=== PATIENT | male | born 1945 | race Two or more races ===

== ENCOUNTER 2021-07-13 13:04 | Emergency (ER) | payer MEDICARE, OTHER ==
[~2021-07-13] VITALS: Ht 175.3 cm; Wt 74.8 kg
[2021-07-13 14:12] LABS: Basophils # (auto) 0.1 10 ^3/uL (0-0.2); Basophils % (auto) 0.8 % (0.0-2.0); Eosinophils # (auto) 0 10 ^3/uL (0-0.8); Eosinophils % (auto) 0.2 % (0.0-7.0); Hematocrit 36.5 % (41.0-53.0); Hemoglobin 12.8 g/dL (13.5-17.5); Lymphocytes # (auto) 1.2 10 ^3/uL (0.4-5.4); Lymphocytes % (auto) 16.3 % (10.0-50.0); Mean Corpuscular Hemoglobin 33.2 pg (28.0-32.0); Mean Corpuscular Hgb Conc. 35.1 g/dL (32.0-36.0); Mean Corpuscular Volume 94.6 fL (80.0-100.0); Monocytes # (auto) 0.6 10 ^3/uL (0-1.3); Monocytes % (auto) 8.8 % (0.0-12.0); Neutrophils # (auto) 5.3 10 ^3/uL (1.6-8.6); Neutrophils % (auto) 73.9 % (37.0-80.0); Nucleated Red Blood Cells % 0.2 %; Red Blood Cells 3.86 10^6/uL (4.5-5.90); Red Cell Distribution Width 15.8 % (11.8-14.3); White Blood Cell 7.2 10^3/uL (4.4-10.8)
[2021-07-13 14:34] LABS: Albumin 4.1 g/dL (3.4-5.0); Calcium 8.6 mg/dL (8.5-10.1); Magnesium 2.3 mg/dL (1.6-2.6); Potassium 4.1 mmol/L (3.5-5.1)
[2021-07-13 14:37] LABS: BUN/Creatinine Ratio 6.9
[2021-07-13 14:52] LABS: Bilirubin, Total 1.6 mg/dL (0.2-1.0); Total Protein 7.5 g/dL (6.4-8.2)
[2021-07-13 15:36] LABS: INR 1.03 (0.9-1.15); Partial Thromboplastin Time 29.3 sec (23.6-33.0)
[2021-07-13 16:19] LABS: Urine Bacteria FEW /hpf (None Seen); Urine Blood 1+ /uL (Negative); Urine Specific Gravity 1.011 (1.001-1.035); Urine WBC 13 /hpf (0 - 3)
[2021-07-13 17:18] VITALS: BP 185/87
== END 2021-07-13 18:06 | disposition home or self-care (01) ==
LOC: ER 13:04
DX: S06.0X9A Concussion with loss of consciousness of unspecified duration, initial encounter (principal); R94.31 Abnormal electrocardiogram [ECG] [EKG]; W18.09XA Striking against other object with subsequent fall, initial encounter; Y93.89 Activity, other specified; Y92.89 Other specified places as the place of occurrence of the external cause; Y99.8 Other external cause status
CPT/HCPCS: 36415; 70450; 70486; 71046; 72125; 72170; 80053; 81001; 83735; 84484; 85025; 85610; 85730; 93005

== ENCOUNTER 2021-08-03 10:53 | Emergency (ER) | payer MEDICARE ==
[~2021-08-03] VITALS: Ht 175.3 cm; Wt 75.3 kg
[2021-08-03 10:57] VITALS: BP 107/87
== END 2021-08-03 11:58 | disposition home or self-care (01) ==
LOC: ER 10:53
DX: S00.03XD Contusion of scalp, subsequent encounter (principal); Z88.0 Allergy status to penicillin; W19.XXXD Unspecified fall, subsequent encounter

== ENCOUNTER 2021-12-29 14:11 | Inpatient (IN) | payer MEDICARE ==
[~2021-12-29] VITALS: Ht 165.1 cm; Wt 70.2 kg
[2021-12-29 15:23] LABS: Basophils # (auto) 0 10 ^3/uL (0-0.2); Basophils % (auto) 0.5 % (0.0-2.0); Eosinophils # (auto) 0.1 10 ^3/uL (0-0.8); Eosinophils % (auto) 1.5 % (0.0-7.0); Hemoglobin 11.7 g/dL (13.5-17.5); Lymphocytes # (auto) 1.1 10 ^3/uL (0.4-5.4); Lymphocytes % (auto) 15.1 % (10.0-50.0); Mean Corpuscular Hemoglobin 28.9 pg (28.0-32.0); Mean Corpuscular Hgb Conc. 33.4 g/dL (32.0-36.0); Mean Corpuscular Volume 86.6 fL (80.0-100.0); Monocytes # (auto) 0.6 10 ^3/uL (0-1.3); Monocytes % (auto) 8.3 % (0.0-12.0); Neutrophils # (auto) 5.3 10 ^3/uL (1.6-8.6); Neutrophils % (auto) 74.6 % (37.0-80.0); Nucleated Red Blood Cells % 0.1 %; Red Blood Cells 4.04 10^6/uL (4.5-5.90); Red Cell Distribution Width 15.9 % (11.8-14.3); White Blood Cell 7.1 10^3/uL (4.4-10.8)
[2021-12-29 15:40] LABS: Albumin 3.9 g/dL (3.4-5.0); Calcium 8.8 mg/dL (8.5-10.1); Potassium 4.6 mmol/L (3.5-5.1)
[2021-12-29 15:43] LABS: BUN/Creatinine Ratio 5.3; Bilirubin, Total 0.8 mg/dL (0.2-1.0)
[2021-12-29] MEDS ORDERED: cefTRIAXone 1GM/50ML D5W 50 ML IV ONE (16:15)
[2021-12-29] MEDS ORDERED: SODIUM CHLORIDE 0.9% 1,000 ML IV ONE (16:15)
[2021-12-29] MEDS ORDERED: SODIUM CHLORIDE 0.9% 500 ML IV ONE (16:15)
[2021-12-30 06:31] LABS: Basophils # (auto) 0 10 ^3/uL (0-0.2); Basophils % (auto) 0.6 % (0.0-2.0); Eosinophils # (auto) 0.2 10 ^3/uL (0-0.8); Eosinophils % (auto) 4.2 % (0.0-7.0); Hemoglobin 11.7 g/dL (13.5-17.5); Lymphocytes # (auto) 1.2 10 ^3/uL (0.4-5.4); Lymphocytes % (auto) 21.4 % (10.0-50.0); Mean Corpuscular Hgb Conc. 33.4 g/dL (32.0-36.0); Mean Corpuscular Volume 86.7 fL (80.0-100.0); Monocytes # (auto) 0.7 10 ^3/uL (0-1.3); Monocytes % (auto) 11.8 % (0.0-12.0); Neutrophils # (auto) 3.6 10 ^3/uL (1.6-8.6); Red Blood Cells 4.04 10^6/uL (4.5-5.90); Red Cell Distribution Width 15.9 % (11.8-14.3); White Blood Cell 5.8 10^3/uL (4.4-10.8)
[2021-12-30 06:47] LABS: Potassium 4.8 mmol/L (3.5-5.1)
[2021-12-30] MEDS: ENOXAPARIN SOD 40 MG/0.4 ML SYRINGE SC SCH (06:47)
[2021-12-30] MEDS: hydrALAZINE HCL 20 MG/ML VL IV PRN (06:47)
[2021-12-30] MEDS: SODIUM CHLORIDE 0.9% 1,000 ML IV SCH ×2 (06:47→12:54)
[2021-12-30] MEDS: PIPERACILLIN-TAZOB 3.375GM 100 ML IV SCH ×3 (06:48→06:53)
[2021-12-30 06:51] LABS: BUN/Creatinine Ratio 6.1
[2021-12-30 07:02] LABS: Bilirubin, Total 0.8 mg/dL (0.2-1.0); Total Protein 7.1 g/dL (6.4-8.2)
[2021-12-30 08:56] LABS: Urine Bacteria NONE SEEN /hpf (None Seen); Urine Blood Negative /uL (Negative); Urine Specific Gravity 1.004 (1.001-1.035); Urine WBC 5 /hpf (0 - 3)
[2021-12-30] MEDS ORDERED: levoFLOXacin 500MG 100 ML IV ONE (11:45)
[2021-12-30] MEDS ORDERED: THIAMINE 100mg/ml INJ (200mg/2ml VIAL) IV ONE (12:30)
[2021-12-30] MEDS ORDERED: chlordiazePOXIDE HCL 25 MG CAP PO PRN (12:30)
[2021-12-30] MEDS: CLINDAMYCIN 600MG IV 50 ML IV SCH ×2 (14:43→23:20)
[2021-12-30] MEDS: chlordiazePOXIDE HCL 5 MG CAP PO SCH ×2 (18:17→23:21)
[2021-12-30 21:45] VITALS: BP 152/67
[2021-12-30] MEDS ORDERED: AMLO10CA33 PO (21:55)
[2021-12-30 22:00] VITALS: BP 152/67
[2021-12-31] MEDS: hydrALAZINE HCL 20 MG/ML VL IV PRN ×2 (04:26→21:52)
[2021-12-31] MEDS: SODIUM CHLORIDE 0.9% 1,000 ML IV SCH ×2 (04:50→21:51)
[2021-12-31] MEDS: CLINDAMYCIN 600MG IV 50 ML IV SCH ×3 (05:15→21:51)
[2021-12-31] MEDS: chlordiazePOXIDE HCL 5 MG CAP PO SCH ×3 (05:16→19:21)
[2021-12-31 05:25] VITALS: BP 164/65
[2021-12-31 06:06] LABS: Potassium 3.9 mmol/L (3.5-5.1)
[2021-12-31 06:12] LABS: Albumin 3.5 g/dL (3.4-5.0); BUN/Creatinine Ratio 9.5; Calcium 8.5 mg/dL (8.5-10.1)
[2021-12-31 06:14] LABS: Bilirubin, Total 0.9 mg/dL (0.2-1.0); Total Protein 6.3 g/dL (6.4-8.2)
[2021-12-31 09:00] VITALS: BP 128/74
[2021-12-31] MEDS: THIAMINE 100mg/ml INJ (200mg/2ml VIAL) IV SCH (09:55)
[2021-12-31] MEDS: ENOXAPARIN SOD 40 MG/0.4 ML SYRINGE SC SCH (09:55)
[2021-12-31] MEDS: levoFLOXacin 500MG 100 ML IV SCH (09:58)
[2021-12-31 13:00] VITALS: BP 124/79
[2021-12-31 16:58] VITALS: BP 159/70
[2021-12-31 20:10] VITALS: BP 168/66
[2021-12-31 22:00] VITALS: BP 168/66
[2022-01-01 00:15] VITALS: BP 136/53
[2022-01-01 05:00] VITALS: BP 143/63
[2022-01-01] MEDS: CLINDAMYCIN 600MG IV 50 ML IV SCH ×3 (05:22→21:15)
[2022-01-01] MEDS: chlordiazePOXIDE HCL 5 MG CAP PO SCH ×5 (05:22→23:18)
[2022-01-01 09:00] VITALS: BP 146/61
[2022-01-01] MEDS: THIAMINE 100mg/ml INJ (200mg/2ml VIAL) IV SCH (10:44)
[2022-01-01] MEDS: ENOXAPARIN SOD 40 MG/0.4 ML SYRINGE SC SCH (10:45)
[2022-01-01] MEDS: levoFLOXacin 500MG 100 ML IV SCH (10:45)
[2022-01-01] MEDS: GABAPENTIN 100 MG CAP PO SCH (10:45)
[2022-01-01 13:00] VITALS: BP 167/77
[2022-01-01] MEDS: SODIUM CHLORIDE 0.9% 1,000 ML IV SCH (13:22)
[2022-01-01 17:00] VITALS: BP 171/79
[2022-01-01] MEDS: hydrALAZINE HCL 20 MG/ML VL IV PRN (17:34)
[2022-01-01 22:00] VITALS: BP 156/66
[2022-01-02] VITALS (8 sets, daily range): BP systolic 141–163; BP diastolic 58–88
[2022-01-02] MEDS: hydrALAZINE HCL 20 MG/ML VL IV PRN ×2 (03:51→12:54)
[2022-01-02] MEDS: ACETAMINOPHEN 500 MG TAB PO PRN ×2 (03:52→21:09)
[2022-01-02] MEDS: chlordiazePOXIDE HCL 5 MG CAP PO SCH ×4 (05:19→23:48)
[2022-01-02] MEDS: CLINDAMYCIN 600MG IV 50 ML IV SCH ×3 (05:19→21:56)
[2022-01-02] MEDS: SODIUM CHLORIDE 0.9% 1,000 ML IV SCH ×2 (06:47→23:48)
[2022-01-02] MEDS: THIAMINE 100mg/ml INJ (200mg/2ml VIAL) IV SCH (09:32)
[2022-01-02] MEDS: GABAPENTIN 100 MG CAP PO SCH (09:32)
[2022-01-02] MEDS: ENOXAPARIN SOD 40 MG/0.4 ML SYRINGE SC SCH (09:32)
[2022-01-02] MEDS: levoFLOXacin 500MG 100 ML IV SCH (09:32)
[2022-01-02 10:12] LABS: Basophils # (auto) 0 10 ^3/uL (0-0.2); Basophils % (auto) 0.4 % (0.0-2.0); Eosinophils # (auto) 0.1 10 ^3/uL (0-0.8); Eosinophils % (auto) 1.4 % (0.0-7.0); Hematocrit 31.9 % (41.0-53.0); Hemoglobin 10.6 g/dL (13.5-17.5); Lymphocytes # (auto) 0.7 10 ^3/uL (0.4-5.4); Mean Corpuscular Hemoglobin 28.6 pg (28.0-32.0); Mean Corpuscular Hgb Conc. 33.3 g/dL (32.0-36.0); Mean Corpuscular Volume 86.1 fL (80.0-100.0); Monocytes # (auto) 0.9 10 ^3/uL (0-1.3); Monocytes % (auto) 12.7 % (0.0-12.0); Neutrophils # (auto) 5.4 10 ^3/uL (1.6-8.6); Neutrophils % (auto) 75.5 % (37.0-80.0); Red Cell Distribution Width 15.4 % (11.8-14.3); White Blood Cell 7.1 10^3/uL (4.4-10.8)
[2022-01-02 10:28] LABS: Calcium 8.3 mg/dL (8.5-10.1); Potassium 3.2 mmol/L (3.5-5.1)
[2022-01-02 10:30] LABS: BUN/Creatinine Ratio 6.5
[2022-01-02 11:56] LABS: INR 1.13 (0.9-1.15); Partial Thromboplastin Time 35.2 sec (24.6-33.4)
[2022-01-03] VITALS (10 sets, daily range): BP systolic 129–169; BP diastolic 71–87
[2022-01-03] MEDS: hydrALAZINE HCL 20 MG/ML VL IV PRN (05:37)
[2022-01-03] MEDS: CLINDAMYCIN 600MG IV 50 ML IV SCH ×3 (06:00→22:06)
[2022-01-03] MEDS: chlordiazePOXIDE HCL 5 MG CAP PO SCH ×3 (06:00→17:20)
[2022-01-03] MEDS: levoFLOXacin 500MG 100 ML IV SCH (08:44)
[2022-01-03] MEDS: THIAMINE 100mg/ml INJ (200mg/2ml VIAL) IV SCH (08:44)
[2022-01-03] MEDS: GABAPENTIN 100 MG CAP PO SCH (08:44)
[2022-01-03] MEDS: ENOXAPARIN SOD 40 MG/0.4 ML SYRINGE SC SCH (08:44)
[2022-01-03] MEDS ORDERED: POTASSIUM EFFERVESENT TAB 25 MEQ PO ONE (09:30)
[2022-01-03] MEDS ORDERED: IODIXANOL 320MG/ML 100ML BTL IV ONE ×3 (11:32→13:51)
[2022-01-03] MEDS ORDERED: LIDOCAINE 2%HCL (LOCAL ANESTH.) INJ 20ML MDV ONE (11:32)
[2022-01-03] MEDS ORDERED: MIDAZOLAM HCL 2MG/2ML 2ml VIAL (1mg/ml) ONE (12:04)
[2022-01-03] MEDS ORDERED: fentaNYL CITRATE 100 MCG/2 ML VL ONE (12:04)
[2022-01-03] MEDS ORDERED: ANGIOMAX 250 MG VIAL IV ONE ×2 (12:04→13:45)
[2022-01-03] MEDS ORDERED: SODIUM CHL 0.9% 0 ML ONE (12:04)
[2022-01-03] MEDS ORDERED: SODIUM CHL 0.9% 50 ML ONE (13:45)
[2022-01-03] MEDS ORDERED: CLOPIDOGREL 300 MG TAB ONE (13:54)
[2022-01-03] MEDS ORDERED: ASPirin 325 MG TAB ONE (13:55)
[2022-01-03] MEDS ORDERED: EPTIFIBATIDE DRIP(0.75MG/ML) 100 ML IV SCH ×2 (14:15→14:30)
[2022-01-03] MEDS ORDERED: EPTIFIBATIDE INJ (2MG/ML) 10ML VIAL IV ONE (14:20)
[2022-01-03] MEDS: SODIUM CHLORIDE 0.9% 1,000 ML IV SCH (16:10)
[2022-01-03] MEDS: ACETAMINOPHEN 500 MG TAB PO PRN (22:08)
[2022-01-04] MEDS: chlordiazePOXIDE HCL 5 MG CAP PO SCH ×3 (00:07→11:48)
[2022-01-04 04:56] VITALS: BP 136/74
[2022-01-04] MEDS: CLINDAMYCIN 600MG IV 50 ML IV SCH ×2 (06:15→14:00)
[2022-01-04 08:17] VITALS: BP 149/75
[2022-01-04] MEDS: GABAPENTIN 100 MG CAP PO SCH (08:54)
[2022-01-04] MEDS: ENOXAPARIN SOD 40 MG/0.4 ML SYRINGE SC SCH (08:54)
[2022-01-04] MEDS: levoFLOXacin 500MG 100 ML IV SCH (08:54)
[2022-01-04] MEDS: THIAMINE 100mg/ml INJ (200mg/2ml VIAL) IV SCH (08:54)
[2022-01-04] MEDS: SODIUM CHLORIDE 0.9% 1,000 ML IV SCH (08:55)
[2022-01-04] MEDS ORDERED: CLOPIDOGREL BISULFATE 75 MG TAB PO SCH (10:00)
[2022-01-04] MEDS ORDERED: ASPirin 81 mg TAB PO SCH (10:00)
[2022-01-04] MEDS ORDERED: ASPI-378 PO (12:09)
[2022-01-04] MEDS ORDERED: CLOP75TA28 PO (12:09)
[2022-01-04] MEDS ORDERED: LEVO500T31 PO (12:09)
[2022-01-04] MEDS ORDERED: GABA100C9 PO (12:09)
[2022-01-04 12:23] VITALS: BP 149/75
[2022-01-04 13:20] VITALS: BP 151/77
[2022-01-04] MEDS ORDERED: ATORVASTATIN 20 MG TAB PO SCH (22:00)
== END 2022-01-04 16:52 | disposition home or self-care (01) | DRG 253 ==
LOC: ER 14:11 → OVERFLOW 19:16 → EAST 12-30 21:01
PROVIDERS: ADMIT Internal Medicine; ATTEND Nurse Practitioner Acute Care
PROC: B41G1ZZ Fluoroscopy of Left Lower Extremity Arteries using Low Osmolar Contrast (ICD-10-PCS; principal; 2022-01-03)
PROC: 047K3Z1 Dilation of Right Femoral Artery using Drug-Coated Balloon, Percutaneous Approach (ICD-10-PCS; 2022-01-03)
PROC: 04FK3ZZ Fragmentation of Right Femoral Artery, Percutaneous Approach (ICD-10-PCS; 2022-01-03)
PROC: B41F1ZZ Fluoroscopy of Right Lower Extremity Arteries using Low Osmolar Contrast (ICD-10-PCS; 2022-01-03)
DX: E11.51 Type 2 diabetes mellitus with diabetic peripheral angiopathy without gangrene (principal); E87.1 Hypo-osmolality and hyponatremia; L03.116 Cellulitis of left lower limb; E11.65 Type 2 diabetes mellitus with hyperglycemia; I10 Essential (primary) hypertension; F17.210 Nicotine dependence, cigarettes, uncomplicated; E11.42 Type 2 diabetes mellitus with diabetic polyneuropathy; E78.5 Hyperlipidemia, unspecified; E66.9 Obesity, unspecified; Z20.822 Contact with and (suspected) exposure to COVID-19; Z79.02 Long term (current) use of antithrombotics/antiplatelets; Z79.82 Long term (current) use of aspirin; Z82.3 Family history of stroke; Z82.49 Family history of ischemic heart disease and other diseases of the circulatory system; Z83.3 Family history of diabetes mellitus; Z88.0 Allergy status to penicillin; Z68.27 Body mass index [BMI] 27.0-27.9, adult
CPT/HCPCS: 36415; 37224; 71046; 75716; 80048; 80053; 81001; 83036; 83735; 83880; 85025; 85610; 85730; 93306; 93925; 93971; 96361; 96365; 96372; 99152; 99153; G0378; J0696; J1956; J2250; J2543; J3490; Q9967